=== PATIENT | female | born 1985 | race African-American/Black ===

== ENCOUNTER 2020-09-03 10:31 | Emergency (ER) | payer OTHER, MEDICAID ==
[~2020-09-03] VITALS: Ht 172.7 cm; Wt 95.0 kg
[2020-09-03] MEDS ORDERED: ACETAMINOPHEN 325MG TABLET PO STA (10:49)
[2020-09-03] MEDS ORDERED: IBUPROFEN 600MG TABLET PO STA (10:49)
[2020-09-03] MEDS ORDERED: BENZ-16 MT (12:02)
[2020-09-03] MEDS ORDERED: GUAI-735 MT (12:02)
[2020-09-03 13:08] VITALS: BP 108/57
== END 2020-09-03 13:05 | disposition home or self-care (01) ==
LOC: ER 10:40
DX: U07.1 COVID-19 (principal); B34.9 Viral infection, unspecified; F17.290 Nicotine dependence, other tobacco product, uncomplicated; R06.02 Shortness of breath; R05 Cough; R50.9 Fever, unspecified; Z79.899 Other long term (current) drug therapy
CPT/HCPCS: 71045; 99284; 99406; C9803; U0003; U0005; 99283